=== PATIENT | female | born 1970 | race Caucasian/White ===

== ENCOUNTER → 2023-02-02 | Outpatient (CLI) | payer BC ==
[~2023-02-02] MED LIST: CATHETER FLUSH 10 ML SYR IV PRN; HOLD METFORMIN - RECEIVED CONTRAST 20 ML VIAL IV SCH; IOHEXOL 350 MG/ML 100 ML (OMNIPAQUE 350) VIAL IV ONE; NS 100 ML (IVPB) BAG IV ONE
--- NOTE | 2023-02-02 15:50 | Diagnostic Imaging Report ---
PROCEDURE: CT abdomen with and without contrast. TECHNIQUE: Multiple contiguous axial CT images of the abdomen were obtained prior to and after intravenous administration of iodinated contrast. Auto Exposure Controls were utilized during the CT exam to meet ALARA standards for radiation dose reduction. INDICATION: Abnormal liver and biliary tract. No prior studies are available for comparison. The lung bases are clear. There appears to be a mass projecting inferiorly from the left lobe of liver measuring approximately 5.9 x 4.2 cm. This does show some peripheral nodular enhancement. This may represent a hemangioma however delayed imaging was not performed. A smaller lesion in the right lobe adjacent to the gallbladder is noted with similar enhancement characteristics measuring 1.9 cm. No other liver masses are identified. Gallbladder is unremarkable. No biliary ductal dilatation. Pancreas and spleen are unremarkable. No adrenal mass is detected. Kidneys are unremarkable. No calculi or hydronephrosis is detected. Aorta is nonaneurysmal. Visualized bowel loops are normal caliber. There is no ascites. IMPRESSION: There are 2 liver masses which show peripheral nodular enhancement and may represent hemangiomas. Delayed imaging was not performed. A repeat study utilizing hemangioma protocol or perhaps performance of a hepatic MRI would be useful for better characterization. No other significant abnormality is detected. Dictated by: Dictated on workstation # [id number]
== END ==
LOC: RAD FS 13:56
PROVIDERS: ATTEND Registered Nurse Emergency
DX: R16.0 Hepatomegaly, not elsewhere classified (principal); R93.2 Abnormal findings on diagnostic imaging of liver and biliary tract
CPT/HCPCS: 74170

== ENCOUNTER → 2023-03-01 | Outpatient (CLI) | payer BC ==
[~2023-03-01] MED LIST changes: -CATHETER FLUSH 10 ML SYR IV PRN
--- NOTE | 2023-03-01 09:38 | Diagnostic Imaging Report ---
EXAMINATION: CT abdomen with and without intravenous contrast. TECHNIQUE: Precontrast acquisitions were acquired through the abdomen . Multiple contiguous axial images were obtained through the abdomen after the administration of intravenous contrast. All CT scans use one or more of the following dose optimizing techniques: automated exposure control, MA and/or KvP adjustment based on patient size and exam type or iterative reconstruction. HISTORY: Liver lesion followup. COMPARISON: 02/02/2023 FINDINGS: Lung bases: The lung bases are clear. Solid organs: There is an exophytic lesion within hepatic segment 3 which measures 6.6 x 4.5 cm. Lesion demonstrates peripheral discontinuous nodular enhancement with progressive filling on delayed images. There is additional smaller slightly exophytic lesion seen within hepatic segment 4B which measures 2.0 x 1.6 cm. This also demonstrates peripheral discontinuous nodular enhancement with progressive fill-in. The liver is otherwise unremarkable. Multiple layering hyperdense stones within the gallbladder. There is no biliary ductal dilation. Pancreas is normal. Spleen is normal. Adrenal glands are normal. The kidneys are normal without hydronephrosis. Bowel: No bowel obstruction. Peritoneum: There is no intraperitoneal free fluid or free air. No suspicious lymphadenopathy. Vasculature: Normal without aneurysm. Musculoskeletal: No suspicious osseous lesion or compression fracture. IMPRESSION: 1. There are 2 exophytic lesions within the liver measuring up to 6.6 cm and 2.0 cm which have imaging characteristics compatible with hemangioma. 2. Otherwise unremarkable CT of the abdomen. Dictated by: Dictated on workstation # [id number]
== END ==
LOC: RAD FS 07:32
PROVIDERS: ATTEND Registered Nurse Emergency
DX: K76.89 Other specified diseases of liver (principal)
CPT/HCPCS: 74170; Q9967